=== PATIENT | male | born 1990 ===

== ENCOUNTER 2018-11-08 06:52 | Emergency (ER) | payer OTHER ==
[2018-11-08 06:56] VITALS: BMI 42.2
[2018-11-08] MEDS ORDERED: Sodium Chloride 0.9% 1,000 ML IV STA (07:58)
--- NOTE | 2018-11-08 08:11 | ED PDOC ---
HPI: Abdomen Time Seen by Provider: 11/08/18 07:03 Chief Complaint (Nursing): Abdominal Pain Chief Complaint (Provider): Abdominal Pain History Per: Patient History/Exam Limitations: no limitations Onset/Duration Of Symptoms: Other (1 week) Location Of Pain/Discomfort: Epigastric Associated Symptoms: Nausea, Diarrhea. denies: Vomiting Additional Complaint(s): 28 y/o male presents to the ED complaining of abdominal pain thats been ongoing for 1 week. Patient states the pain started from his belly button radiating to the right. He reports he has nausea and diarrhea which last episode was yesterday. Patient went to the clinic and did a abdominal x-ray and was prescribed Laxative. He also admits being constipated for 2 days and nausea when he eats. Patient denies vomiting or any other symptoms at this time. PMD: none provided Past Medical History Reviewed: Historical Data, Nursing Documentation, Vital Signs Vital Signs: Last Vital Signs Temp 98.4 F 11/08/18 06:55 Pulse 92 H 11/08/18 06:55 Resp 18 11/08/18 06:55 BP 129/87 11/08/18 06:55 Pulse Ox 98 11/08/18 06:55 Primary Care Provider: FAMILY PROVIDER,NO - Medical History PMH: No Chronic Diseases - Family History Family History: States: Unknown Family Hx - Home Medications Home Medications: Ambulatory Orders Medication Instructions Recorded Dicyclomine [Bentyl] 20 mg PO QID PRN #10 tab 11/08/18 Ondansetron ODT [Zofran ODT] 4 mg PO Q8H PRN #20 odt 11/08/18 - Allergies Allergies/Adverse Reactions: Allergies Allergy/AdvReac Type Severity Reaction Status Date / Time No Known Allergies Allergy Verified 11/08/18 07:16 Review of Systems ROS Statement: Except As Marked, All Systems Reviewed And Found Negative Constitutional: Negative for: Fever Gastrointestinal: Positive for: Nausea, Abdominal Pain, Diarrhea. Negative for: Vomiting Physical Exam - Reviewed Nursing Documentation Reviewed: Yes Vital Signs Reviewed: Yes - Physical Exam Appears: Positive for: Well, Non-toxic, No Acute Distress Head Exam: Positive for: ATRAUMATIC, NORMAL INSPECTION, NORMOCEPHALIC Skin: Positive for: Normal Color, Warm, Dry Eye Exam: Positive for: EOMI, Normal appearance, PERRL ENT: Positive for: Normal ENT Inspection Neck: Positive for: Normal, Painless ROM, Supple Cardiovascular/Chest: Positive for: Regular Rate, Rhythm. Negative for: Murmur Respiratory: Positive for: Normal Breath Sounds. Negative for: Wheezing Gastrointestinal/Abdominal: Positive for: Normal Exam, Soft, Tenderness (Mild epigastric ) Back: Positive for: Normal Inspection. Negative for: L CVA Tenderness, R CVA Tenderness Extremity: Positive for: Normal ROM Neurological/Psych: Positive for: Awake, Alert, Normal Tone, Oriented (x3). Negative for: Motor/Sensory Deficits - Laboratory Results Result Diagrams: 11/08/18 08:20 11/08/18 08:22 - ECG O2 Sat by Pulse Oximetry: 98 Medical Decision Making Medical Decision Making: Time:075 Impression: Plan: -CMP -Lipase -ED urine -PTT -Prothrobim -Sodium chloride -Zofran 4mg INJ -Abdominal US Accession No. : [id number] Patient Name / ID : DANIELLA SCHWAB / [id number] Exam Date : 11/08/2018 09:11:11 ( Approved ) Study Comment : Sex / Age : M / 28Y Creator : Selwyn Cortez MD Dictator : Selwyn Cortez MD Brush Holder Inspector : Booky : Selwyn Cortez MD Approver2 : Report Date : 11/08/2018 12:48:07 My Comment : Date of service: 11/08/2018 HISTORY: Epigastric pain, nausea COMPARISON: Unenhanced abdomen and pelvis CT 02/10/2012. TECHNIQUE: Sonographic evaluation of the right upper quadrant of the abdomen. FINDINGS: LIVER: Measures 18.4 cm in length. Diffusely increased echogenicity of the liver parenchyma. No mass. No intrahepatic bile duct dilatation. GALLBLADDER: The gallbladder is distended without prominent mural thickening, pericholecystic fluid collection or cholelithiasis related. Questionable sludge at the dependent gallbladder including the neck. No sonographic Molina sign reported. COMMON BILE DUCT: Measures 3.0 mm. No stones. No dilatation. PANCREAS: The body of the pancreas appears unremarkable but the head and tail are obscured by overling bowel/stomach gas. RIGHT KIDNEY: Measures 12.6 cm in length. Normal echogenicity. No calculus, mass, or hydronephrosis. AORTA: No aneurysmal dilatation. IVC: Unremarkable. OTHER FINDINGS: None . IMPRESSION: 1. Hepatic steatosis identified without focal hepatic mass or intrahepatic biliary dilatation. 2. Distended gallbladder with questionable sludge at the dependent portion. No cholelithiasis identified. Clinically correlate. Normal caliber CBD. 3. The body of pancreas is unremarkable the remainder obscured by overlying gastrointestinal gas. 1255: Spoke to [employer]. ScribeAttestation: Documented by Roxanne Hebert, acting as ascribefor Love Saenz. ProviderScribeAttestation: All medical record entries made by Trena at my direction and personally dictated by me. I have reviewed the chart and agree that the record accurately reflects my personal performance of the history, physical exam, medical decision making, and the department course for this patient. I have also personally directed, reviewed, and agree with the discharge instructions and disposition. Disposition - Clinical Impression Clinical Impression: Abdominal pain, Gallbladder sludge - Disposition Referrals: Kwabena Gómez MD [Staff Provider] - Disposition: Routine/Home Disposition Time: 13:30 Condition: IMPROVED Prescriptions: Dicyclomine [Bentyl] 20 mg PO QID PRN #10 tab PRN Reason: Pain, Moderate (4-7) Ondansetron ODT [Zofran ODT] 4 mg PO Q8H PRN #20 odt PRN Reason: Nausea/Vomiting Instructions: Acute Abdomen (Belly Pain) Forms: NGRAIN (Mongolian)
[2018-11-08 08:29] LABS: BASO # 0.1 K/uL (0.0-0.2); BASO % 0.9 % (0.0-2.0); EOS # 0.2 K/uL (0.0-0.7); EOS % 3.4 % (0.0-4.0); HEMOGLOBIN 14.8 g/dL (12.0-18.0); LYMPH # 1.9 K/uL (1.0-4.3); LYMPH % 30.5 % (20.0-40.0); MEAN CELL VOLUME 86.6 fl (80.0-94.0); MEAN CORPUSCULAR HEMOGLOBIN 30.1 pg (27.0-31.0); MEAN CORPUSCULAR HGB CONC 34.8 g/dL (33.0-37.0); MONO # 0.6 K/uL (0.0-0.8); MONO % 9.4 % (0.0-10.0); NEUT # 3.4 K/uL (1.8-7.0); NEUT % 55.8 % (50.0-75.0); RBC 4.9 Mil/uL (4.40-5.90); RED CELL DISTRIBUTION WIDTH 12.9 % (11.5-14.5); WHITE BLOOD COUNT 6.1 K/uL (4.8-10.8)
[2018-11-08 09:00] LABS: ALB/GLOB RATIO 1.5 (1.0-2.1); ALBUMIN 4.7 g/dL (3.5-5.0); ALT/SGPT 59 U/L (21-72); AST/SGOT 39 U/L (17-59); BLOOD UREA NITROGEN 14 mg/dl (9-20); CALCIUM 9.3 mg/dL (8.4-10.2); GFR NON-AFRICAN AMERICAN > 60; LIPASE 113 U/L (23-300)
[2018-11-08 09:02] LABS: PROTHROMBIN TIME 11.9 Seconds (9.8-13.1)
[2018-11-08 09:05] LABS: PARTIAL THROMBOPLASTIN TIME 35.1 Seconds (25.6-37.1)
--- NOTE | 2018-11-08 12:51 | US ---
Date of service: 11/08/2018 HISTORY: Epigastric pain, nausea COMPARISON: Unenhanced abdomen and pelvis CT 02/10/2012. TECHNIQUE: Sonographic evaluation of the right upper quadrant of the abdomen. FINDINGS: LIVER: Measures 18.4 cm in length. Diffusely increased echogenicity of the liver parenchyma. No mass. No intrahepatic bile duct dilatation. GALLBLADDER: The gallbladder is distended without prominent mural thickening, pericholecystic fluid collection or cholelithiasis related. Questionable sludge at the dependent gallbladder including the neck. No sonographic Molina sign reported. COMMON BILE DUCT: Measures 3.0 mm. No stones. No dilatation. PANCREAS: The body of the pancreas appears unremarkable but the head and tail are obscured by overling bowel/stomach gas. RIGHT KIDNEY: Measures 12.6 cm in length. Normal echogenicity. No calculus, mass, or hydronephrosis. AORTA: No aneurysmal dilatation. IVC: Unremarkable. OTHER FINDINGS: None . IMPRESSION: 1. Hepatic steatosis identified without focal hepatic mass or intrahepatic biliary dilatation. 2. Distended gallbladder with questionable sludge at the dependent portion. No cholelithiasis identified. Clinically correlate. Normal caliber CBD. 3. The body of pancreas is unremarkable the remainder obscured by overlying gastrointestinal gas.
--- NOTE | 2018-11-08 13:04 | CP.PCM.CON ---
History of Present Illness - History of Present Illness History of Present Illness: General Surgery Consult Note for Dr. Gómez Reason for consult: abd pain 28 M with PMH that includes morbid obesity presents to [facility] for complaint of abd pain. Patient was seen and evaluated in the ED. Patient states that he has been having intermittent abd pain for 1 week. He states that the pain began in periumbilical area and moved to RUQ. Patient also reports nausea and constipation. Patient denies having this pain before 1 week ago. Patient took laxative in which he had multiple BMs yesterday. Patient currently states pain has resolved. ABUS was done in the ED and showed fatty liver as well as sludge in the gallbladder (see full report). Denies fever/chills, cp, SOB, palpitations, diarrhea, vomiting, urinary symptoms, incontinence. PMH: morbid obesity PSH: Denies ALL: NKDA Social: denies tobacco and illicit drug use, drink EtOH multiple times per week Review of Systems - Review of Systems All systems: reviewed and no additional remarkable complaints except (as per HPI) Past Patient History - Infectious Disease Hx of Infectious Diseases: None - Past Social History Smoking Status: Never Smoked - PSYCHIATRIC Hx Substance Use: No Meds Home Medications: Home Medication List Medication Instructions Recorded Confirmed Type Dicyclomine [Bentyl] 20 mg PO QID PRN #10 tab 11/08/18 Rx Ondansetron ODT [Zofran ODT] 4 mg PO Q8H PRN #20 odt 11/08/18 Rx Allergies/Adverse Reactions: Allergies Allergy/AdvReac Type Severity Reaction Status Date / Time No Known Allergies Allergy Verified 11/08/18 07:16 Physical Exam - Constitutional Appears: No Acute Distress - Head Exam Head Exam: ATRAUMATIC, NORMOCEPHALIC - Eye Exam Eye Exam: EOMI, Normal appearance Pupil Exam: PERRL - ENT Exam ENT Exam: Mucous Membranes Moist - Respiratory Exam Respiratory Exam: Clear to Auscultation Bilateral, NORMAL BREATHING PATTERN - Cardiovascular Exam Cardiovascular Exam: REGULAR RHYTHM - GI/Abdominal Exam GI & Abdominal Exam: Normal Bowel Sounds, Soft. absent: Distended, Firm, Guarding, Hernia, Mass, Rebound, Tenderness - Extremities Exam Extremities exam: Positive for: normal capillary refill, pedal pulses present - Back Exam Back exam: absent: CVA tenderness (L), CVA tenderness (R) - Neurological Exam Neurological exam: Alert, CN II-XII Intact, Normal Gait, Oriented x3 - Skin Skin Exam: Dry, Intact, Normal Color, Warm Results - Vital Signs Recent Vital Signs: Last Vital Signs Temp 98.4 F 11/08/18 06:55 Pulse 92 H 11/08/18 06:55 Resp 18 11/08/18 06:55 BP 129/87 11/08/18 06:55 Pulse Ox 98 11/08/18 08:13 - Labs Result Diagrams: 11/08/18 08:20 11/08/18 08:22 Labs: Laboratory Results - last 24 hr 11/08/18 11/08/18 11/08/18 08:20 08:22 08:22 WBC 6.1 RBC 4.90 Hgb 14.8 Hct 42.5 MCV 86.6 MCH 30.1 MCHC 34.8 RDW 12.9 Plt Count 249 MPV 9.0 Neut % (Auto) 55.8 Lymph % (Auto) 30.5 Harvey % (Auto) 9.4 Eos % (Auto) 3.4 Baso % (Auto) 0.9 Neut # (Auto) 3.4 Lymph # (Auto) 1.9 Harvey # (Auto) 0.6 Eos # (Auto) 0.2 Baso # (Auto) 0.1 PT 11.9 INR 1.0 APTT 35.1 Sodium 137 Potassium 4.2 Chloride 101 Carbon Dioxide 25 Anion Gap 15 BUN 14 Creatinine 1.0 Est GFR ( Amer) > 60 Est GFR (Non-Af Amer) > 60 Random Glucose 100 Calcium 9.3 Total Bilirubin 0.8 AST 39 ALT 59 Alkaline Phosphatase 63 Total Protein 7.7 Albumin 4.7 Globulin 3.1 Albumin/Globulin Ratio 1.5 Lipase 113 Assessment & Plan - Assessment and Plan (Free Text) Assessment: 28 M who presents with abd pain; ABUS shows fatty liver and sludge Plan: -Patient currently asymptomatic -No surgical intervention needed at this time -Patient may be discharged from ED and f/u as outpatient -Discussed with Dr. Rico Hill PGY2 - Date & Time Date: 11/08/18 Time: 13:49
[2018-11-08 13:41] VITALS: BP 125/97; PULSE 74; RESP 20; TEMP 97.9
[2018-11-15 08:02] VITALS: O2SAT 98
== END 2018-11-08 13:42 | disposition home or self-care (01) ==
LOC: H.ER 06:52 → SUPCPDRO 06:52 → H.ER 13:42
DX: R10.9 Unspecified abdominal pain (principal); E66.01 Morbid (severe) obesity due to excess calories; K59.00 Constipation, unspecified; K76.0 Fatty (change of) liver, not elsewhere classified; Z79.899 Other long term (current) drug therapy
CPT/HCPCS: 76705; 80053; 83690; 85025; 85610; 85730; 96374; 99284; J2405; J7030